=== PATIENT | male | born 1990 | race Caucasian/White ===

== ENCOUNTER 2018-05-06 21:04 | Emergency (ER) | payer SELFPAY ==
[~2018-05-06] VITALS: Ht 165.1 cm; Wt 86.2 kg
[2018-05-06 21:26] VITALS: BP 128/72
== END 2018-05-06 22:25 | disposition home or self-care (01) ==
LOC: ER 21:06
DX: S40.261A Insect bite (nonvenomous) of right shoulder, initial encounter (principal); S50.861A Insect bite (nonvenomous) of right forearm, initial encounter; S80.861A Insect bite (nonvenomous), right lower leg, initial encounter; F10.10 Alcohol abuse, uncomplicated; Y90.9 Presence of alcohol in blood, level not specified; W57.XXXA Bitten or stung by nonvenomous insect and other nonvenomous arthropods, initial encounter; Y93.89 Activity, other specified; Y92.89 Other specified places as the place of occurrence of the external cause; Y99.8 Other external cause status
CPT/HCPCS: 99282; A4606; Z7610

== ENCOUNTER 2018-11-04 22:42 | Emergency (ER) | payer MEDICAID ==
[~2018-11-04] VITALS: Ht 170.2 cm; Wt 81.6 kg
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
--- NOTE | 2018-11-04 23:25 | NUR ---
CALLED [id number], THEY WILL BE SENDING A UNIT SHORTLY.
--- NOTE | 2018-11-04 23:47 | NUR ---
Pt taken to CT.
--- NOTE | 2018-11-05 00:11 | NUR ---
[facility] AT BEDSIDE.
[2018-11-05] MEDS ORDERED: LIDOCAINE 1%-EPI 1:100,000 20 ML VIAL ONE (00:45)
[2018-11-05] MEDS ORDERED: TDAP [DIPH/PERTUSSIS/TET] 0.5 ML VIAL IM ONE ×2 (00:49→01:00)
[2018-11-05] MEDS ORDERED: LIDOCAINE HCL/PF 1% 30 ML VIAL TP ONE (01:00)
--- NOTE | 2018-11-05 01:20 | NUR ---
ER PA at bedside for laceration repair.
--- NOTE | 2018-11-05 01:30 | NUR ---
rPatient is resting comfortably in bed with eyes closed. Easily aroused. VSS
--- NOTE | 2018-11-05 02:10 | NUR ---
Patient discharged to home in stable condition. Written and verbal after care instructions given. Patient verbalizes understanding of instruction. Pt ambulatory with steady gait.
[2018-11-05 02:12] VITALS: BP 130/88
== END 2018-11-05 02:12 | disposition home or self-care (01) ==
LOC: ER 22:44
DX: S01.01XA Laceration without foreign body of scalp, initial encounter (principal); S40.812A Abrasion of left upper arm, initial encounter; S40.811A Abrasion of right upper arm, initial encounter; S30.811A Abrasion of abdominal wall, initial encounter; R51 Headache; F10.10 Alcohol abuse, uncomplicated; Y90.9 Presence of alcohol in blood, level not specified; Y08.89XA Assault by other specified means, initial encounter; Y93.01 Activity, walking, marching and hiking; Y92.89 Other specified places as the place of occurrence of the external cause; Y99.0 Civilian activity done for income or pay
CPT/HCPCS: 12002; 70450; 90471; 90715; 99284; A4606; A6402; J3490 ×2

== ENCOUNTER 2018-11-07 16:55 | Emergency (ER) | payer MEDICAID ==
[~2018-11-07] VITALS: Ht 167.6 cm; Wt 72.6 kg
[2018-11-07 16:55] VITALS: BP 119/69
== END 2018-11-07 17:59 | disposition home or self-care (01) ==
LOC: ER 16:58
DX: S01.81XD Laceration without foreign body of other part of head, subsequent encounter (principal); X58.XXXD Exposure to other specified factors, subsequent encounter
CPT/HCPCS: 99281; A4606; Z7502

== ENCOUNTER 2018-11-16 17:30 | Emergency (ER) | payer MEDICAID ==
[~2018-11-16] VITALS: Ht 170.2 cm; Wt 72.6 kg
[2018-11-16 17:30] VITALS: BP 127/71
== END 2018-11-16 18:04 | disposition home or self-care (01) ==
LOC: ER 17:32
DX: S01.81XD Laceration without foreign body of other part of head, subsequent encounter (principal); F10.10 Alcohol abuse, uncomplicated; Y90.9 Presence of alcohol in blood, level not specified; X58.XXXD Exposure to other specified factors, subsequent encounter
CPT/HCPCS: 99281; A4606; Z7502